=== PATIENT | male | born 1955 ===

== ENCOUNTER 2024-01-14 13:29 | Outpatient (AMB) | payer OTHER, SELFPAY ==
[2024-01-14 13:44] VITALS: BP 98/62; PULSE 62; O2SAT 96; BMI 28.5
--- NOTE | 2024-01-14 13:44 | A.OFFVIS_ITS ---
Vital Signs 01/14/24 13:44 Height 5 ft 7 in Weight 181 lb 14.102 oz BMI 28.5 BP 98/62 Blood Pressure Location Rt brachial Position Sitting Pulse 62 Pulse Source Doppler Pulse Oximetry (%) 96 Oxygen Delivery Method Room Air Intake Visit Reasons: sleep apnea Engraver Automatic Required: Yes Engraver Automatic Name: Shannon Toñito Kowalski Allergies No Known Allergies Allergy (Verified 01/14/24 13:50) HPI HPI sleep apnea: Details: 68-year-old gentleman, recent approximately 20 pack-year smoker, also with underlying history of moderate obstructive sleep apnea referred for management of his underlying concerns. Patient states that he tried CPAP approximately 1 year prior, however he was not able to tolerated. Though, at this time patient wants to retry CPAP therapy. He denies prior personal or family history of lung disease. He denies dyspnea on exertion. [facility] Social History (Updated 01/14/24 @ 13:54 by Shannon Bowman [facility]) Patient Tobacco Use Status: Former Tobacco user Tobacco use type: Cigarette Cigarettes Per Day: 8 Years Smoked: started at 18, quit 2022 Review of Systems Const Reports daytime sleepiness, Denies excessive sweating, Reports fatigue, Denies fever(s), Denies lethargy, Denies malaise, Denies night sweats, Reports snoring and Denies weight loss Eyes Denies blurry vision and Denies itchy eyes ENT Denies nasal congestion, Denies post nasal drip, Denies sinus pain, Denies sinus pressure and Denies other ( Thrush) Card Denies chest pain, Denies pedal edema, Denies dyspnea, Denies orthopnea and Denies paroxysmal nocturnal dyspnea Resp Denies cough, Denies hemoptysis, Denies excessive phlegm production, Denies dyspnea, Reports snoring and Denies wheezing GI Denies abdominal pain and Denies heartburn Musc Denies myalgias, Denies arthralgias and Denies joint swelling Skin/Breast Denies rash Neuro Denies memory loss and Denies seizure-like activity Psych Denies abnormal sleep pattern, Denies anxiety and Denies memory loss Endo Denies excessive sweating, Reports fatigue and Denies heat intolerance Leo/Lymph Denies easy bruising Aller/Immun Denies itchy eyes, Denies seasonal rhinorrhea and Denies wheezing Physical Exam Vital Signs: Last Vital Signs Pulse 62 01/14/24 13:44 BP 98/62 01/14/24 13:44 Pulse Ox 96 01/14/24 13:44 Oxygen Delivery Method Room Air 01/14/24 13:44 BMI result Body Mass Index 28.5 Const General: no acute distress and alert Nutritional Appearance: not obese Orientation/consciousness: Other orientation findings ( oriented) HEENT Head: Yes atraumatic Eyes General: appearance normal, both eyes and all related structures Sclerae: sclerae normal EOM: EOMs intact bilaterally Neck Neck: Yes supple Lymphatic: no lymphadenopathy noted Resp Effort & Inspection: normal respiratory effort and no use of accessory muscles Auscultation: clear to auscultation bilaterally Cardio Rate: regular rate Rhythm: regular rhythm Heart sounds: no gallops, no murmurs and no rubs Skin General skin exam: other ( warm) Extrem General: No clubbing, No cyanosis and No edema Assessment & Plan Assessment & Plan (1) LILA (obstructive sleep apnea): Code(s): G47.33 - Obstructive sleep apnea (adult) (pediatric) Category: Medical Plan: Results of sleep study from [facility] reviewed, underlying moderate obstructive sleep apnea with AHI of 18. Will start on APAP of 6-16 cm of water. (2) Emphysema lung: Code(s): J43.9 - Emphysema, unspecified Category: Medical Plan: Will obtain pulmonary function test for further evaluation. Orders: Orders PFT pulmonary function test Today J43.9 - Emphysema, unspecified Coding Level of Care Code New Pt Level 4 (62007) Diagnoses LILA (obstructive sleep apnea) G47.33 Emphysema lung J43.9
== END 2024-01-14 14:07 | disposition home or self-care (01) ==
PROVIDERS: PCP Internal Medicine; Visit Provider Internal Medicine Pulmonary Disease
DX: G47.33 Obstructive sleep apnea (adult) (pediatric) (principal); J43.9 Emphysema, unspecified
CPT/HCPCS: 99204

== ENCOUNTER → 2024-01-14 13:29 | Outpatient (BNVA) | payer OTHER, SELFPAY | PROVIDERS: PCP Internal Medicine; Visit Provider Internal Medicine Pulmonary Disease | DX: G47.33 Obstructive sleep apnea (adult) (pediatric) (principal); J43.9 Emphysema, unspecified | CPT/HCPCS: 99202 ==

== ENCOUNTER → 2024-03-17 12:21 | Outpatient (BNVA) | payer OTHER, SELFPAY | PROVIDERS: PCP Internal Medicine; Visit Provider Internal Medicine Pulmonary Disease ==

== ENCOUNTER 2024-07-13 13:24 | Outpatient (AMB) | payer OTHER, SELFPAY ==
[2024-07-13 13:29] VITALS: BP 102/64; PULSE 72; O2SAT 99; BMI 27.8
--- NOTE | 2024-07-13 13:29 | MHC.OFFVIS ---
Vital Signs 07/13/24 13:29 Height 5 ft 7 in Weight 177 lb 7.554 oz BMI 27.8 BP 102/64 Blood Pressure Location Rt brachial Position Sitting Pulse 72 Pulse Source Doppler Pulse Oximetry (%) 99 Oxygen Delivery Method Room Air Intake Visit Reasons: Emphysema/PFT Follow Up City Secretary Required: Yes City Secretary Name: Shannon Toñito Kowalski Allergies No Known Allergies Allergy (Verified 01/14/24 13:50) HPI HPI Emphysema/PFT Follow Up: Details: 68-year-old gentleman, recent approximately 20 pack-year smoker, also with underlying history of moderate obstructive sleep apnea referred for management of his underlying concerns. Patient states that he tried CPAP approximately 1 year prior, however he was not able to tolerated. Though, at this time patient wants to retry CPAP therapy. He denies prior personal or family history of lung disease. He denies dyspnea on exertion. Patient has received his CPAP machine and is getting use to sleeping with it. He has not completed his pulmonary function test yet. He does complain of difficulties falling asleep/staying asleep with CPAP machine. [facility] Social History (Updated 01/14/24 @ 13:54 by Shannon Bowman [facility]) Patient Tobacco Use Status: Former Tobacco user Tobacco use type: Cigarette Cigarettes Per Day: 8 Years Smoked: started at 18, quit 2022 Review of Systems Const Denies daytime sleepiness, Denies excessive sweating, Denies fatigue, Denies fever(s), Denies lethargy, Denies malaise, Denies night sweats, Denies snoring and Denies weight loss Eyes Denies blurry vision and Denies itchy eyes ENT Denies nasal congestion, Denies post nasal drip, Denies sinus pain, Denies sinus pressure and Denies other ( Thrush) Card Denies chest pain, Denies pedal edema, Denies dyspnea, Denies orthopnea and Denies paroxysmal nocturnal dyspnea Resp Denies cough, Denies hemoptysis, Denies excessive phlegm production, Denies dyspnea, Denies snoring and Denies wheezing GI Denies abdominal pain and Denies heartburn Musc Denies myalgias, Denies arthralgias and Denies joint swelling Skin/Breast Denies rash Neuro Denies memory loss and Denies seizure-like activity Psych Denies abnormal sleep pattern, Denies anxiety and Denies memory loss Endo Denies excessive sweating, Denies fatigue and Denies heat intolerance Leo/Lymph Denies easy bruising Aller/Immun Denies itchy eyes, Denies seasonal rhinorrhea and Denies wheezing Physical Exam Vital Signs: Last Vital Signs Pulse 72 07/13/24 13:29 BP 102/64 07/13/24 13:29 Pulse Ox 99 07/13/24 13:29 Oxygen Delivery Method Room Air 07/13/24 13:29 BMI result Body Mass Index 27.8 Const General: no acute distress and alert Nutritional Appearance: not obese Orientation/consciousness: Other orientation findings ( oriented) HEENT Head: Yes atraumatic Eyes General: appearance normal, both eyes and all related structures Sclerae: sclerae normal EOM: EOMs intact bilaterally Neck Neck: Yes supple Lymphatic: no lymphadenopathy noted Resp Effort & Inspection: normal respiratory effort and no use of accessory muscles Auscultation: clear to auscultation bilaterally Cardio Rate: regular rate Rhythm: regular rhythm Heart sounds: no gallops, no murmurs and no rubs Skin General skin exam: other ( warm) Extrem General: No clubbing, No cyanosis and No edema Assessment & Plan Assessment & Plan (1) ILLA (obstructive sleep apnea): Code(s): G47.33 - Obstructive sleep apnea (adult) (pediatric) Category: Medical Plan: Started on CPAP therapy. Continue CPAP therapy. Now also with insomnia, will try on trazodone 50 mg q.p.m. as needed. (2) Emphysema lung: Code(s): J43.9 - Emphysema, unspecified Category: Medical Plan: Pulmonary function test is pending. Medications: New trazodone 50 mg PO BEDTIME PRN 30 tabs 6RF sleep Coding Level of Care Code Est Pt Level 4 (06482) Diagnoses LILA (obstructive sleep apnea) G47.33 Emphysema lung J43.9
== END 2024-07-13 13:48 | disposition home or self-care (01) ==
PROVIDERS: PCP Internal Medicine; Visit Provider Internal Medicine Pulmonary Disease
DX: G47.33 Obstructive sleep apnea (adult) (pediatric) (principal); J43.9 Emphysema, unspecified
CPT/HCPCS: 99214

== ENCOUNTER → 2024-07-13 13:24 | Outpatient (BNVA) | payer OTHER, SELFPAY | PROVIDERS: PCP Internal Medicine; Visit Provider Internal Medicine Pulmonary Disease | DX: J43.9 Emphysema, unspecified (principal); G47.33 Obstructive sleep apnea (adult) (pediatric); Z99.89 Dependence on other enabling machines and devices | CPT/HCPCS: 99212 ==

== ENCOUNTER 2024-08-17 12:32 | Outpatient (AMB) | payer OTHER, SELFPAY ==
[2024-08-17 13:50] VITALS: BP 92/60; PULSE 80; O2SAT 97; BMI 28.0
--- NOTE | 2024-08-17 13:50 | MHC.OFFVIS ---
Vital Signs 08/17/24 13:50 Height 5 ft 7 in Weight 178 lb 9.191 oz BMI 28.0 BP 92/60 Blood Pressure Location Lt brachial Position Sitting Pulse 80 Pulse Source Pulse Oximeter Pulse Oximetry (%) 97 Oxygen Delivery Method Room Air Intake Visit Reasons: Emphysema/PFT Follow Up Valving Machine Operator Required: Yes Valving Machine Operator Services: Valving Machine Operator Present Valving Machine Operator Name: shelia Allergies No Known Allergies Allergy (Verified 08/17/24 13:53) HPI HPI Emphysema/PFT Follow Up: Details: 68-year-old gentleman, recent approximately 20 pack-year smoker, now followed up for moderate LILA well controlled current CPAP therapy and reactive airway disease. Patient has completed his pulmonary function tests. He denies recent exacerbations. [facility] Social History Patient Tobacco Use Status: Former Tobacco user Tobacco use type: Cigarette Cigarettes Per Day: 8 Years Smoked: started at 18, quit 2022 Review of Systems Const Denies daytime sleepiness, Denies excessive sweating, Denies fatigue, Denies fever(s), Denies lethargy, Denies malaise, Denies night sweats, Denies snoring and Denies weight loss Eyes Denies blurry vision and Denies itchy eyes ENT Denies nasal congestion, Denies post nasal drip, Denies sinus pain, Denies sinus pressure and Denies other ( Thrush) Card Denies chest pain, Denies pedal edema, Denies dyspnea, Denies orthopnea and Denies paroxysmal nocturnal dyspnea Resp Denies cough, Denies hemoptysis, Denies excessive phlegm production, Denies dyspnea, Denies snoring and Denies wheezing GI Denies abdominal pain and Denies heartburn Musc Denies myalgias, Denies arthralgias and Denies joint swelling Skin/Breast Denies rash Neuro Denies memory loss and Denies seizure-like activity Psych Denies abnormal sleep pattern, Denies anxiety and Denies memory loss Endo Denies excessive sweating, Denies fatigue and Denies heat intolerance Leo/Lymph Denies easy bruising Aller/Immun Denies itchy eyes, Denies seasonal rhinorrhea and Denies wheezing Physical Exam Vital Signs: Last Vital Signs Pulse 80 08/17/24 13:50 BP 92/60 08/17/24 13:50 Pulse Ox 97 08/17/24 13:50 Oxygen Delivery Method Room Air 08/17/24 13:50 BMI result Body Mass Index 28.0 Const General: no acute distress and alert Nutritional Appearance: not obese Orientation/consciousness: Other orientation findings ( oriented) HEENT Head: Yes atraumatic Eyes General: appearance normal, both eyes and all related structures Sclerae: sclerae normal EOM: EOMs intact bilaterally Neck Neck: Yes supple Lymphatic: no lymphadenopathy noted Resp Effort & Inspection: normal respiratory effort and no use of accessory muscles Auscultation: clear to auscultation bilaterally Cardio Rate: regular rate Rhythm: regular rhythm Heart sounds: no gallops, no murmurs and no rubs Skin General skin exam: other ( warm) Extrem General: No clubbing, No cyanosis and No edema Assessment & Plan Assessment & Plan (1) LILA (obstructive sleep apnea): Code(s): G47.33 - Obstructive sleep apnea (adult) (pediatric) Category: Medical Plan: Well controlled on current CPAP therapy. Continue CPAP therapy. (2) Emphysema lung: Code(s): J43.9 - Emphysema, unspecified Category: Medical Plan: Results of pulmonary function test reviewed reactive airway disease with no fixed obstruction, will start on empiric Breo and albuterol MDI. Coding Level of Care Code Est Pt Level 4 (64662) Diagnoses LILA (obstructive sleep apnea) G47.33 Emphysema lung J43.9
== END 2024-08-17 14:14 | disposition home or self-care (01) ==
PROVIDERS: PCP Internal Medicine; Visit Provider Internal Medicine Pulmonary Disease
DX: J43.9 Emphysema, unspecified (principal)
CPT/HCPCS: 94060; 94727; 94729; 99214

== ENCOUNTER 2024-08-17 12:38 | Outpatient (REF) | payer OTHER, SELFPAY ==
[2024-08-17 10:26] VITALS: PULSE 89; O2SAT 98
--- NOTE | 2024-08-17 13:10 | PFT_ITS ---
Flows: FEV1: 96 % of predicted at 2.89 L FVC: 97 % of predicted at 3.81 L FEV1/FVC: 76 % Bronchodilator response: Present in small to medium airways only Volumes: Total lung capacity: 82 % of predicted at 5.34 L Residual volume: 69 % of predicted at 1.52 L Slow vital capacity: 89 % of predicted at 3.81 L Expiratory reserve volume: 54 % of predicted at 0.58 L Diffusion capacity: Normal Impression: No obstructive or restrictive ventilatory defect. Bronchodilator response is present in small to medium airways only. MTDD
== END 2024-08-17 12:39 | disposition home or self-care (01) ==
LOC: HO.RESP 12:38
PROVIDERS: PCP Internal Medicine; Visit Provider Internal Medicine Pulmonary Disease
DX: J43.9 Emphysema, unspecified (principal); G47.33 Obstructive sleep apnea (adult) (pediatric)
CPT/HCPCS: 94010; 94640; 94727; 94729; 99212

== ENCOUNTER 2025-02-21 13:44 | Outpatient (AMB) | payer OTHER, SELFPAY ==
[2025-02-21 14:15] VITALS: BP 90/58; PULSE 89; O2SAT 97; BMI 27.4
--- NOTE | 2025-02-21 14:15 | MHC.OFFVIS ---
Vital Signs 02/21/25 14:15 Height 5 ft 7 in Weight 175 lb BMI 27.4 BP 90/58 L Blood Pressure Location Rt brachial Position Sitting Pulse 89 Pulse Source Pulse Oximeter Pulse Oximetry (%) 97 Oxygen Delivery Method Room Air Intake Visit Reasons: Emphysema Automation And Controls Supervisor Required: Yes Automation And Controls Supervisor Name: Shannon Sibley Dex Allergies No Known Allergies Allergy (Verified 08/17/24 13:53) HPI HPI Emphysema: Details: 69-year-old gentleman, recent approximately 20 pack-year smoker, now followed up for moderate LILA well controlled current CPAP therapy and reactive airway disease. Patient has completed his pulmonary function tests. He denies recent exacerbations. His asthma symptoms are well controlled on Breo and albuterol MDI. [facility] Social History Patient Tobacco Use Status: Former Tobacco user Tobacco use type: Cigarette Cigarettes Per Day: 8 Years Smoked: started at 18, quit 2022 Review of Systems Const Denies daytime sleepiness, Denies excessive sweating, Denies fatigue, Denies fever(s), Denies lethargy, Denies malaise, Denies night sweats, Denies snoring and Denies weight loss Eyes Denies blurry vision and Denies itchy eyes ENT Denies nasal congestion, Denies post nasal drip, Denies sinus pain, Denies sinus pressure and Denies other ( Thrush) Card Denies chest pain, Denies pedal edema, Denies dyspnea, Denies orthopnea and Denies paroxysmal nocturnal dyspnea Resp Denies cough, Denies hemoptysis, Denies excessive phlegm production, Denies dyspnea, Denies snoring and Denies wheezing GI Denies abdominal pain and Denies heartburn Musc Denies myalgias, Denies arthralgias and Denies joint swelling Skin/Breast Denies rash Neuro Denies memory loss and Denies seizure-like activity Psych Denies abnormal sleep pattern, Denies anxiety and Denies memory loss Endo Denies excessive sweating, Denies fatigue and Denies heat intolerance Leo/Lymph Denies easy bruising Aller/Immun Denies itchy eyes, Denies seasonal rhinorrhea and Denies wheezing Physical Exam Vital Signs: Last Vital Signs Pulse 89 02/21/25 14:15 BP 90/58 L 02/21/25 14:15 Pulse Ox 97 02/21/25 14:15 Oxygen Delivery Method Room Air 02/21/25 14:15 BMI result Body Mass Index 27.4 Const General: no acute distress and alert Nutritional Appearance: not obese Orientation/consciousness: Other orientation findings ( oriented) HEENT Head: Yes atraumatic Eyes General: appearance normal, both eyes and all related structures Sclerae: sclerae normal EOM: EOMs intact bilaterally Neck Neck: Yes supple Lymphatic: no lymphadenopathy noted Resp Effort & Inspection: normal respiratory effort and no use of accessory muscles Auscultation: clear to auscultation bilaterally Cardio Rate: regular rate Rhythm: regular rhythm Heart sounds: no gallops, no murmurs and no rubs Skin General skin exam: other ( warm) Extrem General: No clubbing, No cyanosis and No edema Assessment & Plan Assessment & Plan (1) LILA (obstructive sleep apnea): Code(s): G47.33 - Obstructive sleep apnea (adult) (pediatric) Category: Medical Plan: Well controlled on current CPAP therapy. Continue CPAP therapy. (2) Emphysema lung: Code(s): J43.9 - Emphysema, unspecified Category: Medical Plan: Well controlled on Breo and albuterol MDI. Continue current regimen. (3) Personal history of nicotine dependence: Code(s): Z87.891 - Personal history of nicotine dependence Category: Medical Plan: Will obtain lung cancer screening CT chest. Orders: Orders CT lung screening 01/21/26 Z87.891 - Personal history of nicotine dependence Coding Level of Care Code Est Pt Level 4 (20298) Complex EM visit Add On G2211 Diagnoses LILA (obstructive sleep apnea) G47.33 Emphysema lung J43.9 Personal history of nicotine dependence Z87.891
--- OUTSIDE RECORDS SUMMARY | 2025-02-21 14:58 | XMS_ITS | Encounter Summary ---
Author Organization [facility] Address [address] [place] [address] Care Team Providers Care Barrel Lathe Operator Inside Name Role Phone Marlin Forte MD Primary Care Provider [phone] Reason for Visit * Reason Onset Date Comments prior auth 02/15/2025 Encounter Details Date Type Department Care Team (Late st Contact Info) Description 02/15/2025 Telephone Internal Medicine - [address] [place] [phone] Aydee Briones MA prior auth Social History Tobacco Use Types Packs/Day Years Used Date Smoking Tobacco: Former Smokeless Tobacco: Never Alcohol Use Standard Drinks/Week Comments No 0 (1 standard drink = 0.6 oz pur e alcohol) Sex and Gender Information Value Date Recorded Sex Assigned at Male 10/08/2024 1:59 PM EST Legal Sex Male 5:46 AM EST Gender Identity Male 10/08/2024 1:59 PM EST Sexual Orientation Straight 10/08/2024 1: 59 PM EST documented as of this encounter Progress Notes * Nela Freeman MA - 02/21/2025 12:56 PM EDT There was an error with your request Cannot find matching patient with Name and Date of provided. Please make sure the patient's name and date of are spelled and formatted exactly as shown on the member's insurance card. * Aydee Briones MA - 02/15/2025 2:11 PM EDT Cover my meds PA: Rx - lidocaine (LIDODERM) 5 % patch Topical, Daily Summary: Apply topically 1 (one) time each day. Remove & discard patch within 12 hours or as directed by Lance : [id number] Patient Last Name : SHRUTHI KEYSB : 1955 documented in this encounter Plan of Treatment Upcoming Encounters Date Type Department Care Team (Late st Contact Info) Description 04/06/2025 2:30 PM EDT Office Visit Orthopedic Surgery - [place] [address] [facility] [address] [place] [phone] Dirk Miranda DPM [address] [facility] [address] [place] [address] 05/17/2025 11:00 AM EDT Ancillary Procedure [facility] Cardiology [facility] [address] [place] [phone] 06/22/2025 3:30 PM EDT Office Visit [facility] Cardiology [address] [place] [address] Paulino Flores MD [address] [place] [address] [address] [place] [address] 07/12/2025 1:00 PM EDT Office Visit Internal Medicine - [place] [address] [facility] [address] [place] [phone] Marlin Forte MD [address] [facility] [address] [place] [phone] documented as of this encounter Visit Diagnoses Not on filedocumented in this encounter Additional Health Concerns Assessment Noted Time PHQ-9 Depression Total Score: 0 10/08/19 25 1:09 PM EST documented as of this encounter Care Teams Barrel Lathe Operator Inside Relationship Specialty Start Date End Date Marlin Forte MD [address] [facility] [address] [phone] PCP - General Internal Medicine 10/08/24 documented as of this encounter
== END 2025-02-21 14:32 | disposition home or self-care (01) ==
LOC: HO.HPS 13:45
PROVIDERS: PCP Internal Medicine; Visit Provider Internal Medicine Pulmonary Disease
DX: G47.33 Obstructive sleep apnea (adult) (pediatric) (principal); J43.9 Emphysema, unspecified; Z87.891 Personal history of nicotine dependence
CPT/HCPCS: 99214